=== PATIENT | female | born 1955 | race Caucasian/White ===

== ENCOUNTER 2016-05-18 13:43 | Emergency (ER) | payer OTHER ==
[~2016-05-18] VITALS: Ht 165.1 cm; Wt 75.0 kg
[2016-05-18 13:47] VITALS: BP 138/80
[2016-05-18] MEDS ORDERED: BACITRACIN ZINC OINT 500U/GM, 0.9 GM ONE (14:07)
== END 2016-05-18 14:18 | disposition home or self-care (01) ==
LOC: ED 14:07
DX: L03.116 Cellulitis of left lower limb (principal)
CPT/HCPCS: 99283

== ENCOUNTER 2016-05-20 12:06 | Emergency (ER) | payer OTHER ==
[~2016-05-20] VITALS: Ht 165.1 cm; Wt 77.0 kg
[2016-05-20 12:08] VITALS: BP 125/74
[2016-05-20] MEDS ORDERED: LIDOCAINE 1%, 20ML ONE (12:54)
[2016-05-20] MEDS ORDERED: LIDOCAINE 1%, 20ML SQ ONE (13:00)
== END 2016-05-20 13:17 | disposition home or self-care (01) ==
LOC: ED 13:10
DX: L02.612 Cutaneous abscess of left foot (principal)
CPT/HCPCS: 10060